=== PATIENT | female | born 1930 | race Caucasian/White ===

== ENCOUNTER 2017-01-18 22:27 | Observation (INO) | payer MEDICARE, OTHER ==
[2017-01-18] MEDS ORDERED: ASPIRIN 81 MG TABLET, CHEWABLE PO ONE (22:35)
[2017-01-18] MEDS ORDERED: LIDOCAINE 2% VISCOUS SOLN 20 ML UDCUP PO ONE (22:48)
[2017-01-18] MEDS ORDERED: METOCLOPRAMIDE HCL ORAL SOLN 10 MG/10 ML UDCUP PO ONE (22:48)
[2017-01-18] MEDS ORDERED: MAG HYDROX/AL HYDROX/SIMETH SUSP 30 ML UDCUP PO ONE (22:48)
[2017-01-18 22:58] LABS: ABSOLUTE BASOPHILS # (AUTO) 0.1 10^3/uL (0.0-0.2); ABSOLUTE EOSINOPHILS # (AUTO) 0.3 10^3/uL (0.0-0.6); ABSOLUTE LYMPHOCYTES (AUTO) 1.8 10^3/uL (0.5-4.7); ABSOLUTE MONOCYTES (AUTO) 0.6 10^3/uL (0.1-1.4); ABSOLUTE NEUT (AUTO) 4.5 10^3/uL (1.7-8.2); BASOPHILS % (AUTO) 0.9 % (0-2); EOSINOPHILS % (AUTO) 4.3 % (0-6); HEMATOCRIT 38.4 % (36.0-47.0); HGB HCT DIFFERENCE 0.6; LYMPHOCYTES % (AUTO) 24.6 % (13-45); MEAN CORPUSCULAR HEMOGLOBIN 31.8 pg (27.0-33.4); MEAN CORPUSCULAR HGB CONC 33.9 g/dL (32.0-36.0); MEAN CORPUSCULAR VOLUME 94 fl (80-97); MONOCYTES % (AUTO) 8.2 % (3-13); RED CELL DISTRIBUTION WIDTH 13.1 % (11.5-14.0); WHITE BLOOD COUNT 7.3 10^3/uL (4.0-10.5)
[2017-01-18 23:25] LABS: ALANINE AMINOTRANSFERASE 24 U/L (9-52); ALBUMIN 4.2 g/dL (3.5-5.0); ALKALINE PHOSPHATASE 63 U/L (38-126); ANION GAP 11 (5-19); ASPARTATE AMINO TRANSFERASE 21 U/L (14-36); BILIRUBIN,DIRECT 0.5 mg/dL (0.0-0.4); BILIRUBIN,TOTAL 0.7 mg/dL (0.2-1.3); BLOOD UREA NITROGEN 32 mg/dL (7-20); CALCIUM 9.8 mg/dL (8.4-10.2); CARBON DIOXIDE 30 mmol/L (22-30); CHLORIDE 103 mmol/L (98-107); CREATINE KINASE 49 U/L (30-135); CREATININE RESULT 1.07 mg/dL (0.52-1.25); GLUCOSE 147 mg/dL (75-110); POTASSIUM 3.7 mmol/L (3.6-5.0); SODIUM 144.3 mmol/L (137-145); TOTAL PROTEIN 7.2 g/dL (6.3-8.2)
[2017-01-18 23:34] LABS: CREATINE KINASE MB 0.95 ng/mL (<4.55)
[2017-01-18 23:35] LABS: TROPONIN I < 0.012 ng/mL
--- NOTE | 2017-01-18 23:40 | RADIOLOGY REPORT (SQ) ---
EXAM DESCRIPTION: CHEST SINGLE VIEW COMPLETED DATE/TIME: 01/18/2017 11:17 pm REASON FOR STUDY: CHEST PAIN COMPARISON: February 2015 EXAM PARAMETERS: NUMBER OF VIEWS: One view. TECHNIQUE: Single frontal radiographic view of the chest acquired. RADIATION DOSE: NA LIMITATIONS: None. FINDINGS: LUNGS AND PLEURA: No opacities, masses or pneumothorax. No pleural effusion. MEDIASTINUM AND HILAR STRUCTURES: No masses. Contour normal. HEART AND VASCULAR STRUCTURES: Cardiac silhouette remains enlarged and is unchanged in configuration. BONES: No acute findings. HARDWARE: Patient is status post median sternotomy. OTHER: No other significant finding. IMPRESSION: No significant interval change. Cardiomegaly. No acute consolidations are identified. Other findings as noted above TECHNICAL DOCUMENTATION: JOB ID: [id number]
[2017-01-18] MEDS ORDERED: FAMOTIDINE 20 MG TABLET PO ONE (23:42)
--- NOTE | 2017-01-18 23:48 | ER Document Report ---
ED General - General Chief Complaint: Chest Pain Stated Complaint: BURNING IN CHEST AND THROAT Time Seen by Provider: 01/18/17 22:45 Notes: Patient is an 86-year-old female with a past medical history of coronary artery disease status post four-vessel bypass in the remote past, hypertension and hyperlipidemia who presents with 2 hours of intermittent throat burning and pain. States that it is an intermittent discomfort but severe when present. Nothing triggers the pain and it does resolve spontaneously. She states it feels like a burning pain similar to when she has had reflux in the past but denies having this degree of intense pain in the past. Denies any distinct chest pain, shortness of breath, diaphoresis or pain rating to the arms, back or jaw. She has not seen a primary care doctor regarding today's concerns. She does have a history of esophageal reflux but takes ranitidine for this and usually does not have symptoms when taking this medication. TRAVEL OUTSIDE OF THE [place] IN LAST 30 DAYS: No - Related Data Allergies/Adverse Reactions: No Known Allergies Allergy (Verified 01/18/17 22:28) Past Medical History - General Information source: Patient - Social History Smoking Status: Never Smoker Frequency of alcohol use: None Drug Abuse: None Lives with: Family Family History: Reviewed & Not Pertinent Patient has suicidal ideation: No Patient has homicidal ideation: No - Past Medical History Cardiac Medical History: Reports: Hx Atrial Fibrillation, Hx Hypercholesterolemia, Hx Hypertension Endocrine Medical History: Reports: Hx Diabetes Mellitus Type 2 Renal/ Medical History: Denies: Hx Peritoneal Dialysis Musculoskeltal Medical History: Reports Hx Arthritis - hip Past Surgical History: Reports: Hx Cardiac Surgery - bypass in 1995 - Immunizations Hx Diphtheria, Pertussis, Tetanus Vaccination: Yes Hx Pneumococcal Vaccination: 04/28/07 Review of Systems - Review of Systems Notes: Constitutional: Negative for fever. HENT: Positive for throat pain Eyes: Negative for visual changes. Cardiovascular: Negative for chest pain. Respiratory: Negative for shortness of breath. Gastrointestinal: Negative for abdominal pain, vomiting or diarrhea. Genitourinary: Negative for dysuria. Musculoskeletal: Negative for back pain. Skin: Negative for rash. Neurological: Negative for headaches, weakness or numbness. 10 point ROS negative except as marked above and in HPI. Physical Exam - Vital signs Vitals: Temp Pulse Resp BP Pulse Ox 98.6 F 66 18 163/56 H 96 01/18/17 22:32 01/18/17 22:32 01/18/17 22:32 01/18/17 22:32 01/18/17 22:32 Interpretation: Hypertensive Notes: PHYSICAL EXAMINATION: GENERAL: Well-appearing, well-nourished and in no acute distress. HEAD: Atraumatic, normocephalic. EYES: Pupils equal round and reactive to light, extraocular movements intact, sclera anicteric, conjunctiva are normal. ENT: nares patent, oropharynx clear without exudates. Moist mucous membranes. NECK: Normal range of motion, supple without lymphadenopathy bilateral anterior cervical lymphadenopathy LUNGS: Breath sounds clear to auscultation bilaterally and equal. No wheezes rales or rhonchi. HEART: Irregularly irregular bradycardia, 3 out of 6 systolic ejection murmur ABDOMEN: Soft, nontender, normoactive bowel sounds. No guarding, no rebound. No masses appreciated. EXTREMITIES: Normal range of motion, no pitting or edema. No cyanosis. NEUROLOGICAL: No focal neurological deficits. Moves all extremities spontaneously and on command. PSYCH: Normal mood, normal affect. SKIN: Warm, Dry, normal turgor, no rashes or lesions noted. Course - Re-evaluation Re-evalutation: 01/18/17 23:46 Patient presents with throat pain that is intermittent in nature. Apparently she has had some upper respiratory symptoms over the last several weeks. She does have bilateral cervical lymphadenopathy on exam to suggest likely upper pharyngeal infection. There is no evidence of tonsillar hypertrophy, erythema or uvula deviation on exam. Normal phonation. Denies any difficulty swallowing. She is having no pain at the time of my assessment. Given her age and gender, she could have an atypical presentation of an acute coronary event. EKG does show left bundle branch block of which patient has a history. Initial troponin is normal that her symptoms started only 2 hours prior to arrival so she will require a delta troponin. I do not suspect an acute aortic dissection or pulmonary embolus as the etiology of her complaints today given vitals and history. If a second troponin remains normal and her symptoms are continuing to be improved will plan for discharge home with outpatient follow-up 01/19/17 03:21 Patient's troponin has mildly elevated at 0.044 at the indeterminate range. Dr. Dsouza has requested a repeat troponin now. I have discussed at length with the daughter and the patient at the bedside the options of considering transfer given her rising troponin versus monitoring here for serial troponins. The daughter and the patient themselves do not wish to be transferred at this time stating that they would consider transfer in the morning if the levels continue to trend upwards. They are clear that at this time they are uncertain whether or not something like a cardiac catheterization would be an option for them or not and do not feel that they can make this decision at 3:00 in the morning. 01/19/17 04:27 Repeat troponin is minimally elevated to 0.048. Patient has been admitted. - Vital Signs Vital signs: Temp Pulse Resp BP Pulse Ox 98.6 F 66 17 131/59 H 95 01/18/17 22:32 01/18/17 22:32 01/19/17 04:00 01/19/17 02:02 01/19/17 04:00 - Laboratory Result Diagrams: 01/18/17 22:49 01/18/17 22:49 Laboratory results interpreted by me: 01/18/17 22:49 BUN 32 H Est GFR ( Amer) 59 L Est GFR (Non-Af Amer) 49 L Glucose 147 H Direct Bilirubin 0.5 H - Diagnostic Test Radiology reviewed: Image reviewed, Reports reviewed Radiology results interpreted by me: 01/19/17 03:21 Chest x-ray: No acute infiltrate or pneumothorax - EKG Interpretation by Me Additional EKG results interpreted by me: 01/19/17 03:21 Atrial fibrillation, bradycardic at 59. Left bundle branch block is present unchanged from prior. No ST elevations or depressions. No [place] criteria. Discharge - Discharge Clinical Impression: Chest pain Qualifiers: Chest pain type: unspecified Qualified Code(s): R07.9 - Chest pain, unspecified Condition: Good Disposition: ADMITTED OBSERVATION [facility] Admitted: Telemetry
[2017-01-19] MEDS ORDERED: GLUCAGON,HUMAN RECOMB 1 MG INJ IM PRN ×2 (07:34→12:20)
[2017-01-19] MEDS ORDERED: DEXTROSE 50%-WATER 25 GM/50 ML DISP.SYRIN IV PRN ×4 (07:34→12:20)
[2017-01-19] MEDS ORDERED: DEXTROSE 40% GEL 15 GM TUBE PO PRN ×4 (07:34→12:20)
[2017-01-19] MEDS ORDERED: ACETAMINOPHEN 325 MG TABLET PO PRN (07:35)
--- NOTE | 2017-01-19 08:09 | PDOC H&P ---
History of Present Illness Admission Date/PCP: 01/19/17 04:48 Dr. Peoples Patient complains of: chest pain History of Present Illness: HAJA WARREN is a 86 year old female with atrial fibrillation, and known underlying coronary artery disease, having undergone a four-vessel bypass in the , with somewhat distant history of a subsequent negative stress study, but no subsequent heart catheterization, who presents to the emergency room for evaluation of above complaint. Patient has been discussed with emergency room nurse practitioner who evaluated the patient. Approximately 2 hours prior to arrival in the emergency room, patient experienced fairly pronounced burning discomfort in her lower throat and upper chest, substernal region. She was uncertain if this was chest pain per se, or more in her throat. Does have known reflux, and states that the location and quality of the pain was similar to prior episodes of reflux, but the intensity was much more pronounced, combined with the length of the episode. Resolved spontaneously. No associated diaphoresis, radiation of the pain, or shortness of breath. Took 2 aspirin on her own. Currently resting quietly, chest pain-free. No history of pulmonary embolus or DVT. No recent long trip with prolonged inactivity, or unusual lower extremity swelling or tenderness. Dictation via voice recognition software. Laboratory results are listed in [facility] and are reviewed. X-ray summary results are listed below, with full report(s) reviewed. . EKG reviewed and compared to prior tracing from March 16, 2015. Social history/personal habits: . Daughter lives with her. Retired. No use of alcohol tobacco or illicit drugs. No known drug allergies. Home medications initially autopopulated into [facility] may not accurately reflect patient's true medications, dosages, and/or frequencies. food safety technician to reconcile medications. Unfortunately, patient not certain of all medications/dosages/frequencies. REVIEW OF SYSTEMS: Constitutional: No fever or chills. Eyes: Wears glasses. ENT: No swallowing problems or complaints. Denies hearing loss. Pulmonary: No current complaints. Cardiovascular: See history and present illness. Gastrointestinal: See history and present illness. Skin: No current complaints, including rashes. Hematologic: Easy bruising. Neurologic: No current complaints, including numbness or tingling. Musculoskeletal: No current or chronic joint complaints, such as arthritis. Psychiatric: Denies anxiety or depression. Endocrine: No current complaints, including polyuria. Genitourinary: No current complaints, including dysuria. PHYSICAL EXAMINATION: 5 feet 6 inches tall. 75.3 kg. BMI 26.8 kg/m. 100% saturation on room air. Pulse 53 and slightly irregular. Respirations are 13 and unlabored. Blood pressure 168/69. Temperature 98.1. Slightly overweight otherwise well-nourished well-developed elderly female appearing approximately her stated age. Pleasant awake alert and cooperative. No obvious distress other than perhaps mildly anxious. Skin is warm and dry. No grossly obvious evidence of rash in areas of skin examined. No subcutaneous nodules palpated. ENT: Hearing grossly normal to normal conversation. Tongue midline on protrusion pink and slightly tacky. Eyes: No scleral icterus. Pupils equal and reactive to light at 4 mm. [place] conjunctivae. Neck is supple and nontender to gentle active range of motion and palpation. Midline trachea. No palpable thyroid nodule mass enlargement or tenderness. Lymphatic: No palpable cervical or clavicular nodes. Neck and lymphatic exams limited by patient body habitus. Psychiatric: Reasonable insight into acute and chronic medical issues. Oriented to time location and why here. Lungs: Auscultation reveals clear and equal breath sounds bilaterally. No use of accessory respiratory muscles. Cardiovascular: Heart regular rate and rhythm, without gallop murmur or rub. No carotid or abdominal aortic bruits. No ankle or pedal edema. Faintly palpable dorsalis pedis pulses. Abdomen:soft slightly distended nontender with positive bowel sounds. Unable to adequately evaluate abdomen for masses or organomegaly due to distention. Compression of neither her upper epigastrium nor sternum reproduces her previously noted chest discomfort. Extremities: Feet are warm and dry. No calf tenderness to compression. No grossly obvious visual evidence of calf swelling. Gentle manipulation of lower extremities fails to reveal any obvious evidence of injury or instability to knees hips or ankles. Neurologic: Moves upper extremities grossly normally. Patellar reflexes absent. Absent Babinski. Light touch is intact at feet. Dorsiflexion and plantarflexion of feet 5 / 5 and symmetric. Past Medical History Cardiac Medical History: Reports: Atrial Fibrillation, Coronary Artery Disease, Hyperlipidema, Hypertension Denies: Congestive Heart Failure, DVT, Pulmonary Embolism Pulmonary Medical History: Denies: Asthma, Chronic Obstructive Pulmonary Disease (COPD), Sleep Apnea EENT Medical History: Reports: Eyes - Wears glasses Denies: Ears, Throat Neurological Medical History: Denies: Hemorrhagic CVA, Ischemic CVA, Seizures Endocrine Medical History: Reports: Diabetes Mellitus Type 2 Denies: Diabetes Mellitus Type 1, Hyperthyroidism, Hypothyroidism Renal/ Medical History: Reports: None GI Medical History: Reports: Gastroesophageal Reflux Disease Denies: Cirrhosis, Hepatitis, Peptic Ulcer Disease Musculoskeltal Medical History: Denies: Arthritis Skin Medical History: Reports: None Psychiatric Medical History: Denies: Alcohol Dependency, Depression, General Anxiety Disorder, Substance Abuse, Tobacco Dependency Hematology: Reports: Other - Easy bruising Infectious Medical History: Denies: Hepatitis B, Hepatitis C Past Surgical History Past Surgical History: Reports: Coronary Artery Bypass Graft - Four-vessel bypass, 1990s, Orthopedic Surgery - Hip surgery, Other - Partial thyroidectomy for benign disease Social History Information Source: Patient, Emergency Med Personnel, [facility] Records Lives with: Family - Daughter Smoking Status: Never Smoker Frequency of Alcohol Use: None Drugs: None - Advance Directive Resuscitation Status: Full Code Surrogate healthcare decision maker:: Daughter Family History Family History: Reviewed & Not Pertinent Parental Family History Reviewed: Yes - Mother of [place]; father of tuberculosis Children Family History Reviewed: Yes - Healthy Sibling(s) Family History Reviewed.: Yes - Uncertain health problems with brother Medication/Allergy Home Medications: RX: Aspirin [Aspirin EC] 81 mg PO DAILY 01/19/17 RX: Carvedilol [Coreg 25 mg Tablet] 12.5 mg PO Q12 01/19/17 RX: Hydrochlorothiazide [Hydrodiuril 12.5 mg Capsule] 12.5 mg PO DAILY 01/19/17 RX: Nitroglycerin [Nitrostat] 0.4 mg PO Q5MP PRN 01/19/17 RX: Raloxifene HCl [Evista 60 mg Tablet] 60 mg PO DAILY 01/19/17 RX: Ranitidine HCl [Zantac 150 mg Tablet] 150 mg PO BID 01/19/17 RX: Rivaroxaban [Xarelto] 20 mg PO WSUPPER 01/19/17 RX: Telmisartan [Micardis 80 mg Tablet] 80 mg PO QHS 01/19/17 RX: Trazodone HCl [Desyrel 50 mg Tablet] 50 mg PO QHS 01/19/17 RX: Omeprazole 20 mg PO BID #60 capsule. 01/20/17 RX: Pravastatin Sodium [Pravachol] 80 mg PO WSUPPER #30 tablet 01/20/17 Allergies/Adverse Reactions: No Known Allergies Allergy (Verified 01/18/17 22:28) Physical Exam Vital Signs: Temp Pulse Resp BP Pulse Ox 97.6 F 48 L 20 180/82 H 96 01/19/17 07:35 01/19/17 07:35 01/19/17 07:35 01/19/17 07:35 01/19/17 07:35 Results Impressions: Chest X-Ray 01/18/17 22:35 IMPRESSION: No significant interval change. Cardiomegaly. No acute consolidations are identified. Other findings as noted above Assessment & Plan - Diagnosis (1) CKD (chronic kidney disease), stage III Is this a current diagnosis for this admission?: Yes (2) HLD (hyperlipidemia) Qualifiers: Hyperlipidemia type: unspecified Qualified Code(s): E78.5 - Hyperlipidemia , unspecified Is this a current diagnosis for this admission?: Yes Plan: Lipid panel pending. Resume home medications as appropriate once these have been determined and reviewed. (3) Diabetes mellitus type 2 in nonobese Is this a current diagnosis for this admission?: Yes Plan: Diabetic cardiac prerenal diet. Accu-Cheks with appropriate sliding scale coverage. Resume home medications as appropriate once these have been determined and reviewed. (4) GERD (gastroesophageal reflux disease) Qualifiers: Esophagitis presence: esophagitis presence not specified Qualified Code(s) : K21.9 - Gastro-esophageal reflux disease without esophagitis Is this a current diagnosis for this admission?: Yes Plan: Suspect this is the source of patient's chest discomfort, but will proceed with basic chest pain protocol. Twice daily Prevacid. (5) Elevated troponin Is this a current diagnosis for this admission?: Yes Plan: Low indeterminate range. Serial troponin. (6) CAD (coronary artery disease) Qualifiers: Coronary Disease-Associated Artery/Lesion type: unspecified vessel or lesion type [place] vs. transplanted heart: [place] heart Associated angina: angina presence unspecified Qualified Code(s): I25.10 - Atherosclerotic heart disease of [place] coronary artery without angina pectoris Is this a current diagnosis for this admission?: Yes (7) Chest pain Qualifiers: Chest pain type: unspecified Qualified Code(s): R07.9 - Chest pain, unspecified Is this a current diagnosis for this admission?: Yes Plan: Patient will be placed in observation bed under chest pain protocol. Patient understands to notify staff should chest pain recur. Serial troponin . Repeat EKG. lipid panel. I have strongly encouraged patient not to get out of bed without notifying staff , to avoid a fall with injury. Knee high SCDs for DVT prophylaxis, along with subcu heparin. Impression and plans were discussed with patient who concurs. Time spent in evaluation and management of patient: 68 minutes. - Time Time Spent: 50 to 70 Minutes Anticipated discharge: Home Within: within 24 hours
--- NOTE | 2017-01-19 08:19 | EKG REPORT ---
SEVERITY:- ABNORMAL ECG - ATRIAL FIBRILLATION, V-RATE 41-71 LVH WITH SECONDARY REPOLARIZATION ABNORMALITY ANTERIOR Q WAVES, POSSIBLY DUE TO LVH VS ANTERIOR MA : Confirmed by: Guanaco Enriquez MD 19-Jan-2017 08:19:19
[2017-01-19] MEDS ORDERED: HYDRALAZINE HCL INJ/PF 20 MG/1 ML SDV IV ONE (09:00)
[2017-01-19 10:07] LABS: CHOLESTEROL 192.11 mg/dL (0-200); Direct HDL 63 mg/dL (>40); TRIGLYCERIDES 62 mg/dL (<150)
[2017-01-19 10:18] LABS: DIRECT LDL 98 mg/dL (<100)
[2017-01-19] MEDS ORDERED: HYDRALAZINE HCL INJ/PF 20 MG/1 ML SDV IV PRN (10:53)
[2017-01-19] MEDS: ASPIRIN 81 MG TABLET, ENT COATED PO SCH (11:09)
[2017-01-19] MEDS: HEPARIN SOD (PORCINE) 5,000 UNIT/ML 1 ML SYRINGE SUBCUT SCH ×2 (11:09→21:43)
[2017-01-19] MEDS: DOCUSATE SODIUM 100 MG CAPSULE PO SCH ×2 (11:09→17:58)
--- NOTE | 2017-01-19 12:05 | PDOC CONSULTATION ---
Consultation Consult Date: 01/19/17 Attending physician:: SRIKANTH CHOWDARY Consult reason:: Chest pain, atrial fibrillation, bradycardia History of Present Illness Admission Date/PCP: 01/19/17 07:36 Patient complains of: Chest pain History of Present Illness: HAJA WARREN is a 86 year old female with atrial fibrillation, and known underlying coronary artery disease, having undergone a four-vessel bypass in the , with somewhat distant history of a subsequent negative stress study, but no subsequent heart catheterization, who presents to the emergency room for evaluation of above complaint. Approximately 2 hours prior to arrival in the emergency room, patient experienced fairly pronounced burning discomfort in her lower throat and upper chest, substernal region. She was uncertain if this was chest pain per se, or more in her throat. Patient has known reflux, and states that the location and quality of the pain was similar to prior episodes of reflux, but the intensity was much more pronounced, combined with the length of the episode. Resolved spontaneously after being given GI cocktail. No associated diaphoresis, radiation of the pain, or shortness of breath. Currently resting quietly, chest pain-free. Patient does have a history of carotid artery stenosis and is status post stent placement few years ago. This history was reviewed, supplemented and confirmed. Patient's daughter, son in the room they helped in history gathering Past Medical History Cardiac Medical History: Reports: Atrial Fibrillation, Coronary Artery Disease, Hyperlipidema, Hypertension, Peripheral Vascular Disease - History of carotid stenting Denies: Congestive Heart Failure, DVT, Pulmonary Embolism Pulmonary Medical History: Denies: Asthma, Chronic Obstructive Pulmonary Disease (COPD), Sleep Apnea EENT Medical History: Reports: Eyes - Wears glasses, Other - Easy bruising Denies: Ears, Throat Neurological Medical History: Denies: Hemorrhagic CVA, Ischemic CVA, Seizures Endocrine Medical History: Reports: Diabetes Mellitus Type 2 Denies: Diabetes Mellitus Type 1, Hyperthyroidism, Hypothyroidism Renal/ Medical History: Reports: None GI Medical History: Reports: Gastroesophageal Reflux Disease Denies: Cirrhosis, Hepatitis, Peptic Ulcer Disease Musculoskeltal Medical History: Denies: Arthritis Skin Medical History: Reports: None Psychiatric Medical History: Denies: Alcohol Dependency, Depression, General Anxiety Disorder, Substance Abuse, Tobacco Dependency Hematology: Reports: Other - Easy bruising Infectious Medical History: Denies: Hepatitis B, Hepatitis C Past Surgical History Past Surgical History: Reports: Coronary Artery Bypass Graft - Four-vessel bypass, , Orthopedic Surgery - Hip surgery, Other - Partial thyroidectomy for benign disease, history of carotid stent Social History Information Source: Patient Lives with: Family - Daughter Smoking Status: Never Smoker Frequency of Alcohol Use: None Drugs: None - Advance Directive Resuscitation Status: Full Code Surrogate healthcare decision maker:: Patient's daughter is the surrogate decision-maker Family History Family History: CAD, Hypertension Parental Family History Reviewed: Yes Children Family History Reviewed: Yes Sibling(s) Family History Reviewed.: Yes Medication/Allergy Home Medications: Aspirin [Aspirin EC] 81 mg PO DAILY 01/19/17 Carvedilol [Coreg 25 mg Tablet] 12.5 mg PO Q12 01/19/17 Hydrochlorothiazide [Hydrodiuril 12.5 mg Capsule] 12.5 mg PO DAILY 01/19/17 Nitroglycerin [Nitrostat] 0.4 mg PO Q5MP PRN 01/19/17 Omeprazole 20 mg PO QAM 01/19/17 Pravastatin Sodium [Pravachol] 40 mg PO WSUPPER 01/19/17 Raloxifene HCl [Evista 60 mg Tablet] 60 mg PO DAILY 01/19/17 Ranitidine HCl [Zantac 150 mg Tablet] 150 mg PO BID 01/19/17 Rivaroxaban [Xarelto] 20 mg PO WSUPPER 01/19/17 Telmisartan [Micardis 80 mg Tablet] 80 mg PO QHS 01/19/17 Trazodone HCl [Desyrel 50 mg Tablet] 50 mg PO QHS 01/19/17 Allergies/Adverse Reactions: No Known Allergies Allergy (Verified 01/18/17 22:28) Review of Systems Review of Systems: Please see history of present illness and past medical history as wall. Constitutional: No fever or chills reported. Head : No recent chronic headaches, recent head injury. Eyes: No recent eye pain, diplopia, redness, discharge, acute visual changes. Ears: No recent chronic ear pain, acute hearing loss, ear discharge. Oral cavity: No recent ulcerations, bleeding, oral cavity discomfort. Neck: No recent acute neck pain reported. Hematologic: No recent easy bruising or bleeding or hematologic malignancy reported. Lymphatic: No recent lymphatic malignancy, chronic lymphadenopathy reported yet Cardiovascular system review: See history of present illness. Respiratory system review: No recent chronic cough, hemoptysis, blood clots in the lungs reported. Mild Shortness of breath on exertion Gastrointestinal system review: Negative for any recent acute or chronic abdominal pain, hematemesis, melena, recent change in bowel habits. Patient has history of reflux Genitourinary system review: No recent acute or chronic hematuria, flank pain, UTI etc. reported. Skin system review: Negative for any recent abnormal bruising, no rash, no pruritus reported. Neurologic: No prior history of strokes, mini strokes, seizure disorder. Psychologic: No history of major psychosis or major depression reported. Musculoskeletal: Minor aches and pains reported. No acute joint swelling reported. Endocrine: No recent polyuria, polydipsia, recent heat or cold intolerance. Physical Exam Vital Signs: Temp Pulse Resp BP Pulse Ox 97.6 F 48 L 20 180/82 H 96 01/19/17 07:35 01/19/17 07:35 01/19/17 07:35 01/19/17 07:35 01/19/17 07:35 Results Laboratory Results: 01/19/17 09:31 Triglycerides 62 Cholesterol 192.11 LDL Cholesterol Direct 98 VLDL Cholesterol 12.0 HDL Cholesterol 63 01/19/17 09:31 Troponin I 0.028 EKG Comments: Atrial fibrillation with minor nonspecific ST-T changes, possible LVH Impressions: Chest X-Ray 01/18/17 22:35 IMPRESSION: No significant interval change. Cardiomegaly. No acute consolidations are identified. Other findings as noted above Assessment & Plan - Diagnosis (1) Chest pain Qualifiers: Chest pain type: unspecified Qualified Code(s): R07.9 - Chest pain, unspecified Is this a current diagnosis for this admission?: Yes (2) CAD (coronary artery disease) Qualifiers: Coronary Disease-Associated Artery/Lesion type: unspecified vessel or lesion type [place] vs. transplanted heart: [place] heart Associated angina: angina presence unspecified Qualified Code(s): I25.10 - Atherosclerotic heart disease of [place] coronary artery without angina pectoris Is this a current diagnosis for this admission?: Yes (3) CKD (chronic kidney disease), stage III Is this a current diagnosis for this admission?: Yes (4) Diabetes mellitus type 2 in nonobese Is this a current diagnosis for this admission?: Yes (5) HLD (hyperlipidemia) Qualifiers: Hyperlipidemia type: unspecified Qualified Code(s): E78.5 - Hyperlipidemia , unspecified Is this a current diagnosis for this admission?: Yes (6) Hypertension Qualifiers: Hypertension type: essential hypertension Qualified Code(s): I10 - Essential (primary) hypertension Is this a current diagnosis for this admission?: Yes (7) Carotid artery stenosis Qualifiers: Laterality: unspecified laterality Qualified Code(s): I65.29 - Occlusion and stenosis of unspecified carotid artery Is this a current diagnosis for this admission?: Yes (8) Afib Qualifiers: Atrial fibrillation type: chronic Qualified Code(s): I48.2 - Chronic atrial fibrillation Is this a current diagnosis for this admission?: Yes - Notes Notes: Chest pain: Patient has known CAD with prior bypass surgery many years ago. There is at least intermediate to high probability that the chest discomfort is from cardiac ischemia. At this point agree with the NH rule out protocol. For risk stratification, agreed that a 2D echo and nuclear stress test is indicated and these were scheduled. At this point will recommend optimization of medical therapy for underlying CAD. Coronary artery disease: Patient gives history of quadruple bypass surgery in . Recommend optimization of medical management. Chronic kidney disease: Currently stable. Diabetes: Currently stable recommend good control but avoid any hypo-or hyperglycemia. Dyslipidemia: Recommend high potency statin therapy. Hypertension: Blood pressure goal should be 150/90 or less in this elderly lady. However stricter goals can also be recommended. Carotid artery stenosis: Patient gives history of stent placement. Continue statin and antiplatelet therapy. Currently stable without any TIA or stroke type symptoms. A. FIB: chronic, continue coumadine. - Time Time Spent: 30 to 50 Minutes - CODE STATUS was discussed, patient remains full code. Surrogate decision-maker patient's daughter. Multiple medical problems were addressed. More than 50% of the time spent coordinating care, discussing management plans with involved caregivers. Management plans discussed with involved personnels. Medical decision making was of moderate to high complexity , patient's has multiple comorbidities. Medications reviewed and adjusted accordingly: Yes
[2017-01-19] MEDS ORDERED: INSULIN LISPRO 100 UNIT/ML 3 ML VIAL SUBCUT PRN (12:20)
[2017-01-19] MEDS ORDERED: ATORVASTATIN CALCIUM 80 MG TABLET PO SCH (12:30)
[2017-01-19] MEDS ORDERED: ATORVASTATIN CALCIUM 80 MG TABLET PO ONE (14:00)
--- NOTE | 2017-01-19 14:07 | PDOC PROGRESS REPORT ---
Subjective Progress Note for:: 01/19/17 Subjective:: Pt is seen resting in bed comfortably with her [id number] present. She denies chest pain at present. She reports that she had a sudden onset of neck pain described as a burning sensation that radiated to the substernal region. [id number] states that pt was "off balance" at onset of pain. She reports that the pain was similar to episodes of reflux she has had in the past, but much more severe and accompanied by a general sense of "unease." She has not had any further episodes of pain. She denies fever, chills, parker, dizziness, confusion, palpitations, abd pain, nausea/vomiting. Review of systems is otherwise negative. Physical Exam Vital Signs: Temp Pulse Resp BP Pulse Ox 97.6 F 48 L 20 180/82 H 96 01/19/17 07:35 01/19/17 07:35 01/19/17 07:35 01/19/17 07:35 01/19/17 07:35 General appearance: PRESENT: no acute distress, well-developed, well-nourished Head exam: PRESENT: atraumatic, normocephalic Eye exam: PRESENT: conjunctiva pink, EOMI, PERRLA. ABSENT: scleral icterus Ear exam: PRESENT: normal external ear exam Mouth exam: PRESENT: moist, tongue midline Neck exam: PRESENT: full ROM. ABSENT: carotid bruit, JVD, lymphadenopathy, thyromegaly Respiratory exam: PRESENT: clear to auscultation shae. ABSENT: rales, rhonchi, wheezes Cardiovascular exam: PRESENT: bradycardia, +S1, +S2. ABSENT: diastolic murmur, rubs, systolic murmur Pulses: PRESENT: normal dorsalis pedis pul Vascular exam: PRESENT: normal capillary refill GI/Abdominal exam: PRESENT: normal bowel sounds, soft. ABSENT: distended, guarding, mass, organolmegaly, rebound, tenderness Rectal exam: PRESENT: deferred Extremities exam: PRESENT: full ROM. ABSENT: calf tenderness, clubbing, pedal edema Neurological exam: PRESENT: alert, awake, oriented to person, oriented to place , oriented to time, oriented to situation, CN II-XII grossly intact. ABSENT: motor sensory deficit Psychiatric exam: PRESENT: appropriate affect, normal mood. ABSENT: homicidal ideation, suicidal ideation Skin exam: PRESENT: dry, intact, warm. ABSENT: cyanosis, rash Results Laboratory Results: 01/19/17 09:31 Triglycerides 62 Cholesterol 192.11 LDL Cholesterol Direct 98 VLDL Cholesterol 12.0 HDL Cholesterol 63 01/19/17 09:31 Troponin I 0.028 Impressions: Chest X-Ray 01/18/17 22:35 IMPRESSION: No significant interval change. Cardiomegaly. No acute consolidations are identified. Other findings as noted above Assessment & Plan - Diagnosis (1) Chest pain Qualifiers: Chest pain type: unspecified Qualified Code(s): R07.9 - Chest pain, unspecified Is this a current diagnosis for this admission?: Yes Plan: Patient with known CAD and hx of CABG several years ago in setting of afib, hypertension, HLD and DM2. Will complete CA rule out protocol. Troponin trended down (<0.012-->0.044-->0.048-->0.028) 1- Appreciate cardiology consultation 2- Will obtain echocardiogram and nuclear stress test (2) Hypertension Qualifiers: Hypertension type: essential hypertension Qualified Code(s): I10 - Essential (primary) hypertension Is this a current diagnosis for this admission?: Yes Plan: Goal for BP less than 150/90 1- Resume home medications with holding parameters: hydrochlorothiazide, carvedilol, telmisartan 2- PRN hydralazine (3) HLD (hyperlipidemia) Qualifiers: Hyperlipidemia type: unspecified Qualified Code(s): E78.5 - Hyperlipidemia , unspecified Is this a current diagnosis for this admission?: Yes Plan: High dose statin (4) Diabetes mellitus type 2 in nonobese Is this a current diagnosis for this admission?: Yes Plan: No home medications; diet controlled. 1- Monitor bgl with SSI (5) GERD (gastroesophageal reflux disease) Qualifiers: Esophagitis presence: esophagitis presence not specified Qualified Code(s) : K21.9 - Gastro-esophageal reflux disease without esophagitis Is this a current diagnosis for this admission?: Yes Plan: 1- Prevacid BID 2- Consider GI cocktail for severe sx (6) Afib Qualifiers: Atrial fibrillation type: chronic Qualified Code(s): I48.2 - Chronic atrial fibrillation Is this a current diagnosis for this admission?: Yes Plan: 1- Plan as above 2- Continue home medication: Xarelto (7) CAD (coronary artery disease) Qualifiers: Coronary Disease-Associated Artery/Lesion type: unspecified vessel or lesion type [place] vs. transplanted heart: [place] heart Associated angina: angina presence unspecified Qualified Code(s): I25.10 - Atherosclerotic heart disease of [place] coronary artery without angina pectoris Is this a current diagnosis for this admission?: Yes (8) CKD (chronic kidney disease), stage III Is this a current diagnosis for this admission?: Yes Plan: Avoid nephrotoxic medications; will monitor. - Time Time Spent with patient: 35 or more minutes Medications reviewed and adjusted accordingly: Yes Anticipated discharge: Home
--- NOTE | 2017-01-19 16:21 | EKG REPORT ---
SEVERITY:- ABNORMAL ECG - ATRIAL FIBRILLATION INCOMPLETE LEFT BUNDLE BRANCH BLOCK LVH WITH SECONDARY REPOLARIZATION ABNORMALITY ANTERIOR Q WAVES, POSSIBLY DUE TO LVH VS OLD ANTERIOR CO : Confirmed by: Guanaco Enriquez MD 19-Jan-2017 16:20:30
[2017-01-19] MEDS ORDERED: RIVAROXABAN 10 MG TABLET PO SCH (17:00)
[2017-01-19] MEDS: HYDRALAZINE HCL INJ/PF 20 MG/1 ML SDV IV PRN ×2 (17:58→21:43)
[2017-01-19] MEDS: LANSOPRAZOLE 30 MG TAB.RAP.DR PO SCH (17:58)
[2017-01-19] MEDS: PROMETHAZINE HCL 25 MG TABLET PO PRN (18:45)
[2017-01-19] MEDS ORDERED: POTASSIUM CHLORIDE 10 MEQ TABLET.SA PO ONE (20:00)
[2017-01-19] MEDS: CARVEDILOL 12.5 MG TABLET PO SCH (21:42)
[2017-01-19] MEDS ORDERED: (PENDING PHARMACY ID) (Carvedilol [Coreg 25 Mg Tablet] 12.5 MG) PO SCH (22:00)
[2017-01-19] MEDS ORDERED: TRAZODONE HCL 50 MG TABLET PO SCH (22:00)
[2017-01-19] MEDS ORDERED: LOSARTAN POTASSIUM 50 MG TABLET PO SCH (22:00)
[2017-01-19] MEDS ORDERED: (PENDING PHARMACY ID) (Telmisartan [Micardis 80 Mg Tablet] 80 MG) PO SCH (22:00)
[2017-01-19] MEDS ORDERED: LOSARTAN POTASSIUM 25 MG TABLET PO SCH (22:00)
[2017-01-20 06:04] LABS: ANION GAP 11 (5-19); BLOOD UREA NITROGEN 26 mg/dL (7-20); CALCIUM 9.1 mg/dL (8.4-10.2); CARBON DIOXIDE 28 mmol/L (22-30); CHLORIDE 101 mmol/L (98-107); CREATININE RESULT 0.91 mg/dL (0.52-1.25); GLUCOSE 130 mg/dL (75-110); POTASSIUM 3.8 mmol/L (3.6-5.0); SODIUM 139.6 mmol/L (137-145)
[2017-01-20] MEDS: LANSOPRAZOLE 30 MG TAB.RAP.DR PO SCH (06:58)
[2017-01-20] MEDS: PROMETHAZINE HCL 25 MG TABLET PO PRN (08:43)
[2017-01-20] MEDS ORDERED: RALOXIFENE HCL 60 MG TABLET PO SCH (10:00)
[2017-01-20] MEDS ORDERED: ATORVASTATIN CALCIUM 80 MG TABLET PO SCH (10:00)
[2017-01-20] MEDS ORDERED: LISINOPRIL 5 MG TABLET PO SCH (10:00)
[2017-01-20] MEDS ORDERED: POTASSIUM CHLORIDE 10 MEQ TABLET.SA PO SCH (10:00)
[2017-01-20] MEDS ORDERED: HYDROCHLOROTHIAZIDE 12.5 MG CAPSULE PO SCH (10:00)
[2017-01-20] MEDS: HEPARIN SOD (PORCINE) 5,000 UNIT/ML 1 ML SYRINGE SUBCUT SCH (11:26)
[2017-01-20] MEDS: CARVEDILOL 12.5 MG TABLET PO SCH (11:31)
[2017-01-20] MEDS: ASPIRIN 81 MG TABLET, ENT COATED PO SCH (11:31)
[2017-01-20] MEDS: DOCUSATE SODIUM 100 MG CAPSULE PO SCH (12:13)
[2017-01-20] MEDS ORDERED: REGADENOSON INJ 0.4 MG/5 ML DISP.SYRIN IV ONE (13:18)
[2017-01-20] MEDS ORDERED: AMINOPHYLLINE INJ/PF 250 MG/10 ML SDV IV ONE (13:18)
--- NOTE | 2017-01-20 13:19 | DRAGON STRESS TEST REPORT ---
INTRAVENOUS LEXISCAN CARDIOLITE STRESS TEST USING SINGLE PHOTON EMMISION COMPUTERIZED TOMOGRAPHIC. DATE OF PROCEDURE: January 20, 2017 INDICATION : Chest pain CARDIAC RISK FACTORS: Known CAD with status post CABG RESTING EKG: Atrial fibrillation with diffuse T-wave inversions, nonprogression of R-wave V1 to V3, left axis deviation STRESS EKG: No significant changes noted with LexiScan bolus REASON FOR TERMINATION: Protocol. PROCEDURE REPORT: Baseline heart rate 59 beats per minute with blood pressure of 143/67. Patient had no significant complaints. Heart rate at 2 minutes post bolus 73 with a blood pressure of 114/46. 3 minutes post bolus heart rate 65 with blood pressure of 123/52. No significant EKG changes were noted. Patient had no significant complaints during the procedure or postprocedure. Patient injected with Aminophyllin 75 mg at 3 minutes or later after Lexiscan bolus. CONCLUSIONS: Normal EKG and hemodynamic response to IV LexiScan. NUCLEAR DATA: At rest the patient was given 11.46 millicuries of technetium 99 sestamibi injected intravenously. As per protocol rest gated SPECT images were obtained. Subsequently the patient was given intravenous LexiScan at a dose of 0.4 mg in 5 mL intravenously, followed by flush with normal saline. Subsequently the stress dose of 34.8 millicuries of technetium 99 sestamibi was injected intravenously. As per protocol stress gated images were obtained. NUCLEAR INTERPRETATION: Both raw and processed data were used for interpretation. Visual, qualitative, computer-generated quantitative data was used. There was good myocardial uptake of technetium compound. Motion artifact and soft tissue attenuations were noted. Increased visceral uptake was noted. No definitive areas of transient perfusion defect noted except for mild decreased uptake noted in the mid anterior wall, most likely related to differences in breast attenuation artifact but cannot rule out an area of mild ischemia. No definitive areas of fixed perfusion defect or scars noted. EKG gated imaging showed LV EF at 56 %, rest and stress gated EF similar visually. T. I D. ratio was 1.27. Lung heart ratio noted to be within normal limits 0.30. No significant extracardiac and abnormal radiotracer activities were noted. RV free wall uptake was noted to be WNL. IMPRESSION: Also refer to comments under nuclear interpretation. Also test results needs to be interpreted in the context of pretest probability. 1. No definitive areas of transient perfusion defect noted except for mild decreased uptake noted in the mid anterior wall, most likely related to differences in breast attenuation artifact but cannot rule out an area of mild ischemia 2. There is no definitive scintigraphic evidence of myocardial infarction/scar. 3. EKG gated imaging shows left ventricular ejection fraction of approximately 56 %. 4. Clinical correlation requested as occasionally single vessel disease or balanced ischemia could be missed. In approximately 10% of the cases Lexiscan may not cause adequate vasodilatory stress. RECOMMENDATIONS: Aggressive risk factor modification, medical therapy. Clinical correlation with echocardiogram derived ejection fraction. Inability to exercise by itself can lead to increased cardiovascular event risks. Consider cardiology consultation and or follow-up if clinically indicated. I AM AVAILABLE FOR CARDIOLOGY CONSULTATION AND FOLLOWUP IF REQUESTED BY PMD Frank Arteaga M.D., [employer] Operator plastic surgery technician, Board certified in cardiovascular diseases, Nuclear cardiology, Echocardiography Cardiac CT and cardiac MRI Ph. [phone] [facility] CENTERJorgito
[2017-01-20 13:31] VITALS: BP 155/61
--- NOTE | 2017-01-20 16:32 | PDOC DISCHARGE SUMMARY ---
General - Admit/Disc Date/PCP Admission Date/Primary Care Provider: 01/19/17 07:36 Discharge Date: 01/20/17 - Discharge Diagnosis (1) Chest pain Is this a current diagnosis for this admission?: Yes Summary: Patient was sent onset severe neck "burning sensation" that radiated substernally. Chest pain likely related to her GERD/reflux, however based upon age, female gender, history of diabetes, and previous CABG in the was admitted for chest pain protocol. Initial troponin indeterminately elevated and trended down. Cardiology consulted. Nuclear stress test reassuring; no definitive evidence of myocardial infarction/scar. At time of dictation, echocardiogram is pending. (2) Hypertension Is this a current diagnosis for this admission?: Yes Summary: Home medications resumed with holding parameters for hydrochlorothiazide, carvedilol, telmisartan. PRN hydralazine required x1. Pt remains mildly hypertensive and will require continued gradual medication adjustments as outpatient. (3) HLD (hyperlipidemia) Is this a current diagnosis for this admission?: Yes Summary: Statin therapy escalated for cardiovascular event protection. (4) Diabetes mellitus type 2 in nonobese Is this a current diagnosis for this admission?: Yes Summary: Diet controlled. On statin and ASA. (5) GERD (gastroesophageal reflux disease) Is this a current diagnosis for this admission?: Yes Summary: Symptoms well controlled while inpatient; will d/c on Omeprazole BID. (6) Afib Is this a current diagnosis for this admission?: Yes Summary: Continue Xarelto. (7) CAD (coronary artery disease) Is this a current diagnosis for this admission?: Yes (8) CKD (chronic kidney disease), stage III Is this a current diagnosis for this admission?: Yes Summary: Avoid nephrotoxic medications. - Additional Information Resuscitation Status: Full Code Discharge Diet: Cardiac, Diabetic Discharge Activity: Activity As Tolerated, Balance Activity w/Rest Home Medications: Aspirin [Aspirin EC] 81 mg PO DAILY 01/19/17 Carvedilol [Coreg 25 mg Tablet] 12.5 mg PO Q12 01/19/17 Hydrochlorothiazide [Hydrodiuril 12.5 mg Capsule] 12.5 mg PO DAILY 01/19/17 Nitroglycerin [Nitrostat] 0.4 mg PO Q5MP PRN 01/19/17 Raloxifene HCl [Evista 60 mg Tablet] 60 mg PO DAILY 01/19/17 Ranitidine HCl [Zantac 150 mg Tablet] 150 mg PO BID 01/19/17 Rivaroxaban [Xarelto] 20 mg PO WSUPPER 01/19/17 Telmisartan [Micardis 80 mg Tablet] 80 mg PO QHS 01/19/17 Trazodone HCl [Desyrel 50 mg Tablet] 50 mg PO QHS 01/19/17 Omeprazole 20 mg PO BID #60 capsule. 01/20/17 Pravastatin Sodium [Pravachol] 80 mg PO WSUPPER #30 tablet 01/20/17 History of Present Illness Patient complains of: Pt has no complaints today. She denies additional episodes of chest pain. She denies parker, dizziness, chest pain, dyspnea, orthopnea. She is hopeful for a d/c to home after completion of stress test and echocardiogram. History of Present Illness: Per H&P by Dr. Dsouza: HAJA WARREN is a 86 year old female with atrial fibrillation, and known underlying coronary artery disease, having undergone a four-vessel bypass in the , with somewhat distant history of a subsequent negative stress study, but no subsequent heart catheterization, who presents to the emergency room for evaluation of above complaint. Approximately 2 hours prior to arrival in the emergency room, patient experienced fairly pronounced burning discomfort in her lower throat and upper chest, substernal region. She was uncertain if this was chest pain per se, or more in her throat. Does have known reflux, and states that the location and quality of the pain was similar to prior episodes of reflux, but the intensity was much more pronounced, combined with the length of episode. Resolved spontaneously. No associated diaphoresis, radiation of the pain, or shortness of breath. Took 2 aspirin on her own. Currently resting quietly, chest pain-free. Hospital Course Hospital Course: Severe burning sensation of the throat radiating to substernal region resolved spontaneously prior to arrival in the ER. She was admitted for observation with chest pain protocol. Troponins trended negative. Cardiac stress test reassuring. At time of dictation, echocardiogram is pending. Patient with A. fib, bradycardia, hypertension. Her medications were adjusted with holding parameters for bradycardia. She was continued on her Xarelto. Today she remains slightly hypertensive, however, stable and acceptable for discharge. She denies additional occurrences of pain, and reports that she is hopeful to be discharged to home today. Physical Exam Vital Signs: Temp Pulse Resp BP Pulse Ox 98.3 F 60 19 155/61 H 97 01/20/17 12:13 01/20/17 12:13 01/20/17 12:13 01/20/17 12:13 01/20/17 12:13 Intake & Output 01/19/17 01/20/17 01/21/17 06:59 06:59 06:59 Intake Total 1100 200 Output Total 300 Balance 800 200 Weight 79.1 kg General appearance: PRESENT: no acute distress, well-developed, well-nourished Head exam: PRESENT: atraumatic, normocephalic Eye exam: PRESENT: conjunctiva pink, EOMI, PERRLA. ABSENT: scleral icterus Ear exam: PRESENT: normal external ear exam Mouth exam: PRESENT: moist, tongue midline Neck exam: ABSENT: carotid bruit, JVD, lymphadenopathy, thyromegaly Respiratory exam: PRESENT: clear to auscultation shae. ABSENT: rales, rhonchi, wheezes Cardiovascular exam: PRESENT: irregular rhythm, +S1, +S2. ABSENT: diastolic murmur, rubs, systolic murmur Pulses: PRESENT: normal dorsalis pedis pul Vascular exam: PRESENT: normal capillary refill GI/Abdominal exam: PRESENT: normal bowel sounds, soft. ABSENT: distended, guarding, mass, organolmegaly, rebound, tenderness Rectal exam: PRESENT: deferred Extremities exam: PRESENT: full ROM. ABSENT: calf tenderness, clubbing, pedal edema Neurological exam: PRESENT: alert, awake, oriented to person, oriented to place , oriented to time, oriented to situation, CN II-XII grossly intact. ABSENT: motor sensory deficit Psychiatric exam: PRESENT: appropriate affect, normal mood. ABSENT: homicidal ideation, suicidal ideation Skin exam: PRESENT: dry, intact, warm. ABSENT: cyanosis, rash Results Laboratory Results: 01/20/17 05:00 01/19/17 01/20/17 15:05 05:00 Sodium 139.6 Potassium 3.8 Chloride 101 Carbon Dioxide 28 Anion Gap 11 BUN 26 H Creatinine 0.91 Est GFR ( Amer) > 60 Est GFR (Non-Af Amer) 59 L Glucose 130 H Calcium 9.1 Magnesium 1.9 01/19/17 01/19/17 09:31 15:05 Troponin I 0.028 0.018 Impressions: Chest X-Ray 01/18/17 22:35 IMPRESSION: No significant interval change. Cardiomegaly. No acute consolidations are identified. Other findings as noted above Plan Discharge Plan: Follow-up with PCP within 7 days. Follow-up with [facility] in 4 weeks. Return to ED immediately for severe chest pain or chest pain unresolved after 2 Nitro tabs. Time Spent: Greater than 30 Minutes
--- NOTE | 2017-01-20 19:26 | XCELERA REPORT ---
[address] [address] Transthoracic Echocardiogram Report Name: HAJA WARREN Age: 86 yrs Gender: Female : 1930 Patient Status: Inpatient Patient Location: [address] [place] [address] Study Date: 01/20/2017 03:01 PM Height: 66 in Weight: 166 lb BSA: 1.8 m2 Procedure: A complete two-dimensional transthoracic echocardiogram was performed (2D, M-mode, spectral and color flow Doppler). The study was technically adequate with some images being suboptimal in quality. Reason For Study: chest pain Ordering Physician: STEFANO MERCADO Performed By: Dwaine Delarosa Interpretation Summary The left ventricular ejection fraction is normal. There is mild concentric left ventricular hypertrophy. The left ventricle is grossly normal size. Wall motion cannot be accurately commented on, but no definite regional wall motion abnormalities noted. LV diastolic function could not be adequately assessed due to atrial fibrilation. The right ventricle is mildly dilated. The right atrium is mildly dilated. The left atrium is moderately dilated. There is a mild amount of mitral regurgitation There is no mitral valve stenosis. There is a mild amount of aortic regurgitation There is no aortic valve stenosis There is a moderate amount of tricuspid regurgitation Right ventricular systolic pressure is estimated to be elevated at 50- 60mmHg. There is moderate pulmonary hypertension by echo The aortic root is not well visualized but is probably normal size. The inferior vena cava appeared normal and decreased > 50% with respiration (RAP 5-10 mmHg) There is no pericardial effusion. MMode/2D Measurements & Calculations RVDd: 3.6 cm LVIDd: 4.4 cm FS: 36.9 % Ao root diam: 3.0 cm IVSd: 1.4 cm LVIDs: 2.8 cm EDV(Teich): 85.9 ml LVPWd: 1.4 cm ESV(Teich): 28.4 ml Ao root area: 7.2 cm2 EF(Teich): 67.0 % Doppler Measurements & Calculations MV E max shree: MV dec slope: Ao V2 max: AI max shree: 100.3 cm/sec 185.7 cm/sec 330.0 cm/sec MV A max shree: 522.5 cm/sec2 Ao max PG: AI max P.41 cm/sec MV dec time: 13.8 mmHg 43.6 mmHg MV E/A: 244.4 0.19 sec AI dec slope: 159.2 cm/sec2 AI P1/2t: 607.2 msec LV V1 max PG: PA V2 max: PI end-d shree: TR max shree: 5.8 mmHg 87.0 cm/sec 119.1 cm/sec 325.9 cm/sec LV V1 max: PA max P.0 mmHg TR max P.4 cm/sec 43.4 mmHg RVSP(TR): 48.4 mmHg RAP systole: 5.0 mmHg Left Ventricle The left ventricle is grossly normal size. There is mild concentric left ventricular hypertrophy. The left ventricular ejection fraction is normal. LV diastolic function could not be adequately assessed due to atrial fibrilation. Wall motion cannot be accurately commented on, but no definite regional wall motion abnormalities noted. Right Ventricle The right ventricle is mildly dilated. There is normal right ventricular wall thickness. The right ventricular systolic function is normal. Atria The right atrium is mildly dilated. The left atrium is moderately dilated. Interarterial septum not well visualized and not well dopplered. Cannot comment on ASD/PFO presence. Mitral Valve The mitral valve leaflets are sclerotic, but show no functional abnormalities. There is no mitral valve stenosis. There is a mild amount of mitral regurgitation. Aortic Valve The aortic valve is sclerotic, but shows no functional abnormality. There is no aortic valve stenosis. There is a mild amount of aortic regurgitation. Tricuspid Valve The tricuspid valve is not well visualized, but is grossly normal. There is no tricuspid stenosis. There is a moderate amount of tricuspid regurgitation. Right ventricular systolic pressure is estimated to be elevated at 50-60mmHg. There is moderate pulmonary hypertension by echo. Pulmonic Valve The pulmonic valve is not well visualized. Great Vessels The aortic root is not well visualized but is probably normal size. The inferior vena cava appeared normal and decreased > 50% with respiration (RAP 5-10 mmHg). Effusions There is no pericardial effusion. : STEFANO MERCADO > Frank Arteaga
--- NOTE | 2017-01-20 20:05 | PDOC PROGRESS REPORT ---
Subjective Progress Note for:: 01/20/17 Subjective:: Patient seems to be doing better with gradual improvement. Pt is denying any chest arm or neck discomfort. Patient denying any PND, orthopnea. Patient denied any sustained palpitations, dizziness, syncope, near syncope. Patient denying any fever chills. Patient denying any other significant discomfort. Patient is maintaining atrial fibrillation, heart rate is well controlled. Patient did undergo nuclear stress test this morning without any complications.. Review of systems: Rest review of systems negative. Medications: Medications have been reviewed. Physical Exam Vital Signs: Temp Pulse Resp BP Pulse Ox 98.3 F 52 L 19 155/61 H 97 01/20/17 17:10 01/20/17 17:10 01/20/17 17:10 01/20/17 12:13 01/20/17 17:10 Intake & Output 01/19/17 01/20/17 01/21/17 06:59 06:59 06:59 Intake Total 1100 200 Output Total 300 Balance 800 200 Weight 79.1 kg Exam: GENERAL: well-nourished and in no acute distress. Alert and oriented x3 HEAD: Atraumatic, normocephalic. EYES: Pupils equal round and reactive to light, extraocular movements intact, sclera anicteric, conjunctiva are normal. ENT: TMs normal, nares patent, oropharynx clear without exudates. Moist mucous membranes. No oral ulcerations or bleeding gums noted NECK: supple without lymphadenopathy. Trachea is central. No cervical or axillary lymphadenopathy noted. Carotids are 2+, JVD WNL LUNGS: Respiration seems nonlabored, no significant accessory muscle action noted. Breath sounds clear to auscultation bilaterally and equal noted. No wheezes rales or rhonchi noted. No significant dullness noted on percussion. CHEST: Palpation of the chest wall shows no significant chest wall tenderness. No other significant abnormalities noted. HEART: [place] [employer], No PSH, 1/6 ARJUN aortic area, 1/6 winters systolic murmur mitral area, no rubs, no gallops. ABDOMEN: Soft, no significant tenderness appreciated, normoactive bowel sounds. No guarding, no rebound. No rigidity noted . No masses appreciated. EXTREMITIES: Pedal pulses are 1-2+, no calf tenderness noted. No clubbing or cyanosis.trace to 1+ pedal edema noted NEUROLOGICAL: Focused neurological exam showed no significant neurologic deficit. Normal speech, no focal weakness appreciated. PSYCH: Normal mood, normal affect. Judgment and insight within normal limits. SKIN: No significant ecchymosis, rash, ulcerations or signs of pruritus noted. MUSCULOSKELETAL EXAM: No significant joint swelling noted. Results Laboratory Results: 01/20/17 05:00 01/20/17 05:00 Sodium 139.6 Potassium 3.8 Chloride 101 Carbon Dioxide 28 Anion Gap 11 BUN 26 H Creatinine 0.91 Est GFR ( Amer) > 60 Est GFR (Non-Af Amer) 59 L Glucose 130 H Calcium 9.1 01/19/17 01/19/17 09:31 15:05 Troponin I 0.028 0.018 EKG Comments: Atrial fibrillation with controlled ventricular response noted. Impressions: Chest X-Ray 01/18/17 22:35 IMPRESSION: No significant interval change. Cardiomegaly. No acute consolidations are identified. Other findings as noted above Assessment & Plan - Diagnosis (1) Chest pain Qualifiers: Chest pain type: unspecified Qualified Code(s): R07.9 - Chest pain, unspecified Is this a current diagnosis for this admission?: Yes (2) CAD (coronary artery disease) Qualifiers: Coronary Disease-Associated Artery/Lesion type: unspecified vessel or lesion type [place] vs. transplanted heart: [place] heart Associated angina: angina presence unspecified Qualified Code(s): I25.10 - Atherosclerotic heart disease of [place] coronary artery without angina pectoris Is this a current diagnosis for this admission?: Yes (3) CKD (chronic kidney disease), stage III Is this a current diagnosis for this admission?: Yes (4) Diabetes mellitus type 2 in nonobese Is this a current diagnosis for this admission?: Yes (5) HLD (hyperlipidemia) Qualifiers: Hyperlipidemia type: unspecified Qualified Code(s): E78.5 - Hyperlipidemia , unspecified Is this a current diagnosis for this admission?: Yes (6) Hypertension Qualifiers: Hypertension type: essential hypertension Qualified Code(s): I10 - Essential (primary) hypertension Is this a current diagnosis for this admission?: Yes (7) Carotid artery stenosis Qualifiers: Laterality: unspecified laterality Qualified Code(s): I65.29 - Occlusion and stenosis of unspecified carotid artery Is this a current diagnosis for this admission?: Yes (8) Afib Qualifiers: Atrial fibrillation type: chronic Qualified Code(s): I48.2 - Chronic atrial fibrillation Is this a current diagnosis for this admission?: Yes - Notes Notes: Chest pain: Nuclear stress test relatively low risk.. Small area of mild ischemia versus differences in breast attenuation artifact was noted. In view of patient's advanced age, patient was advised medical management with which they agree. 2D echo shows normal LVEF. Overall risk is noted to be on the low side. This was discussed in detail with the patient, her son who were in the room. Their questions were answered. Coronary artery disease: Symptomatically stable. Chronic kidney disease: Stable Diabetes: Blood sugar under satisfactory control. Hyperlipidemia: Continue statin therapy. Carotid artery stenosis: Stable Atrial fibrillation: Continue rate control and chronic anticoagulation. - Time Time with patient: Greater than 35 minutes - Patient was seen multiple times. In the morning nuclear stress test risk benefits were discussed. Patient questions were answered. Patient stress test was supervised. Later on nuclear stress test results were discussed. Overall at least 40 minutes spent. CODE STATUS was discussed, patient remains full code. Surrogate decision-maker unchanged. Multiple medical problems were addressed. More than 50% of the time spent coordinating care, discussing management plans with involved caregivers. Management plans discussed with involved personnels. Medical decision making was of moderate to high complexity, patient's has multiple comorbidities. Medications reviewed and adjusted accordingly: Yes
== END 2017-01-20 17:34 | disposition home or self-care (01) ==
LOC: ER 22:27 → EH 01-19 04:48 → UNDOADMOB 01-19 04:48 → EH 01-19 07:29 → 3W 01-19 07:29 → EH 01-19 07:36
PROVIDERS: ADMIT Family Medicine; ATTEND Family Medicine
DX: K21.9 Gastro-esophageal reflux disease without esophagitis (principal); E78.5 Hyperlipidemia, unspecified; I48.2 Chronic atrial fibrillation; I25.10 Atherosclerotic heart disease of native coronary artery without angina pectoris; I12.9 Hypertensive chronic kidney disease with stage 1 through stage 4 chronic kidney disease, or unspecified chronic kidney disease; E11.22 Type 2 diabetes mellitus with diabetic chronic kidney disease; N18.3 Chronic kidney disease, stage 3 (moderate); R00.1 Bradycardia, unspecified; I65.29 Occlusion and stenosis of unspecified carotid artery; R74.8 Abnormal levels of other serum enzymes; R59.0 Localized enlarged lymph nodes; I44.7 Left bundle-branch block, unspecified; Z79.02 Long term (current) use of antithrombotics/antiplatelets; Z79.82 Long term (current) use of aspirin; Z79.899 Other long term (current) drug therapy; Z95.1 Presence of aortocoronary bypass graft; Z95.5 Presence of coronary angioplasty implant and graft; Z82.49 Family history of ischemic heart disease and other diseases of the circulatory system; Z83.1 Family history of other infectious and parasitic diseases; Z84.89 Family history of other specified conditions
CPT/HCPCS: 93005 ×2; 99285; 36415 ×3; 82553; 82962 ×2; 82550; 83735; 85025; 80048; 80053; 84484 ×2; 80061; 93306; 93017; 71010; 78452; 93010 ×2; G0378 ×2; A9500; A9270 ×20; J2785; J1644 ×2; J0360; J3490 ×3; J0280; Q9969

== ENCOUNTER → 2017-03-27 | Outpatient (CLI) | payer MEDICARE, OTHER ==
--- NOTE | 2017-03-27 14:55 | RADIOLOGY REPORT (SQ) ---
EXAM DESCRIPTION: CT ABD/PELVIS NO ORAL OR IV COMPLETED DATE/TIME: 03/27/2017 2:30 pm REASON FOR STUDY: ABD PAIN (R10.9), ACUTE LOW BACK PAIN (M54.5) R10.9 UNSPECIFIED ABDOMINAL PAIN COMPARISON: None. TECHNIQUE: CT scan of the abdomen and pelvis performed without intravenous or oral contrast. Images reviewed with lung, soft tissue, and bone windows. Reconstructed coronal and sagittal MPR images revi ewed. All images stored on PACS. All CT scanners at this facility use dose modulation, iterative reconstruction, and/or weight based d osing when appropriate to reduce radiation dose to as low as reasonably achievable (ALARA). [facility]: Dose Right [facility]: CareDose [facility]: Dose Right [facility]: Teradose 4D [facility]: coRank RADIATION DOSE: CT Rad equipment meets quality standard of care and radiation dose reduction techniq ues were employed. CTDIvol: 7.5 mGy. DLP: 384 mGy-cm.mGy. LIMITATIONS: Artifact is identified on several of the pelvic images related to a left hip prosthesis . FINDINGS: LOWER CHEST: No significant findings. No nodules or infiltrates. NON-CONTRASTED LIVER, SPLEEN, ADRENALS: Evaluation limited by lack of IV contrast. No identified sign ificant masses. PANCREAS: No masses. No peripancreatic inflammatory changes. GALLBLADDER: Small solitary gallstone is identified. No inflammatory changes to suggest cholecystitis . RIGHT KIDNEY AND URETER: No suspicious masses. Assessment limited by lack of IV contrast. No signif icant calcifications. No hydronephrosis or hydroureter. LEFT KIDNEY AND URETER: No suspicious masses. Assessment limited by lack of IV contrast. No signifi cant calcifications. No hydronephrosis or hydroureter. AORTA AND RETROPERITONEUM: No aneurysm. There is some ectasia of the abdominal aorta with vascular c alcifications. No retroperitoneal masses or adenopathy. BOWEL AND PERITONEAL CAVITY: No obvious masses or inflammatory changes. No free fluid. APPENDIX: Normal. PELVIS, BLADDER, AND ABDOMINAL WALL:No abnormal masses. No free fluid. Bladder normal. Umbilical her ricardo containing fat is identified. There is some laxity in the anterior abdominal musculature in the midline in the upper abdomen with a convex bulge and small associated ventral hernia. BONES: No significant findings. OTHER: A vacuum phenomenon is identified at the level of the L4-L5 disc space consistent with disc de generation IMPRESSION: Small solitary gallstone. Small ventral hernia and umbilical hernia as noted above. Ot her findings as noted above COMMENT: Quality ID # [id number]: Final reports with documentation of one or more dose reduction techniques (e.g., Automated exposure control, adjustment of the mA and/or kV according to patient size, use of iterative reconstruction technique) TECHNICAL DOCUMENTATION: JOB ID: [id number] [employer]- All Rights Reserved
== END ==
LOC: RAD 14:13
PROVIDERS: ATTEND Physician Assistant
DX: M54.5 Low back pain (principal); R10.9 Unspecified abdominal pain
CPT/HCPCS: 74176

== ENCOUNTER 2020-03-18 18:08 | Emergency (ER) | payer MEDICARE, OTHER ==
--- NOTE | 2020-03-18 18:59 | ER Document Report ---
ED General - General Chief Complaint: Shortness Of Breath Stated Complaint: SHORTNESS OF BREATH Time Seen by Provider: 03/18/20 18:59 Primary Care Provider: JEROME EAST MD [Primary Care Provider] - Follow up as needed TRAVEL OUTSIDE OF THE [place] IN LAST 30 DAYS: No - HPI Notes: 89-year-old female presents with acute onset of shortness of breath. Information is primarily obtained from patient's daughter who lives with her. States that around 2 PM patient was complaining of not feeling well, states that she had an upset stomach, but denied abdominal pain. No nausea or vomiting. At 2:30 PM patient had said that her stomach was feeling better and that she just wanted to lay down. At 5 PM patient's daughter thought that she could hear a "wheezing" and patient seemed short of breath, she did not have a fever. At 5:30 PM the shortness of breath increased, daughter could "hear a rattling in her chest" and more wheezing, therefore decision made to come to the emergency department. Patient's daughter states that she was recently seen by cardiology, Dr. Castillo in [place]. States that carvedilol has been recently discontinued due to "systolic issues" and patient has been doubled on amlodipine, told to expect leg swelling. Patient has been having leg swelling for the past few days, alternates between right and left, right is swollen today. Additionally states that patient has a heart monitor, recently there was an episode where her heart had "stopped for 6 seconds", states this is why the carvedilol was discontinued, on recent recheck of the heart monitor was told that her rhythm was "ok". Denies previous history of CHF or COPD. Patient has had quadruple bypass. Compliant with Xarelto. Patient currently denies complaints. There have been no known Covid exposures. - Related Data Allergies/Adverse Reactions: No Known Allergies Allergy (Verified 01/18/17 22:28) Past Medical History - General Information source: Relative Cannot obtain history due to: Dementia - Social History Smoking Status: Unknown if Ever Smoked Family History: Reviewed & Not Pertinent - Past Medical History Cardiac Medical History: Reports: Hx Atrial Fibrillation, Hx Coronary Artery Disease, Hx Hypercholesterolemia, Hx Hypertension, Hx Peripheral Vascular Disease - History of carotid stenting Denies: Hx Congestive Heart Failure, Hx DVT, Hx Pulmonary Embolism Pulmonary Medical History: Denies: Hx Asthma, Hx COPD, Hx Sleep Apnea Neurological Medical History: Denies: Hx Seizures Endocrine Medical History: Reports: Hx Diabetes Mellitus Type 2. Denies: Hx Diabetes Mellitus Type 1, Hx Hyperthyroidism, Hx Hypothyroidism Renal/ Medical History: Denies: Hx Peritoneal Dialysis GI Medical History: Reports: Hx Gastroesophageal Reflux Disease. Denies: Hx Cirrhosis, Hx Hepatitis Musculoskeletal Medical History: Denies Hx Arthritis Psychiatric Medical History: Denies: Hx Depression Infectious Medical History: Denies: Hx Hepatitis Past Surgical History: Reports: Hx Cardiac Surgery - bypass in 1995, Hx Coronary Artery Bypass Graft - Four-vessel bypass, , Hx Orthopedic Surgery - Hip surgery, Other - Partial thyroidectomy for benign disease - Immunizations Hx Diphtheria, Pertussis, Tetanus Vaccination: Yes Hx Pneumococcal Vaccination: 04/28/07 Review of Systems - Review of Systems Notes: Unable to obtain full ROS due to dementia Cardiovascular: denies: Chest pain Respiratory: Short of breath Gastrointestinal: denies: Abdominal pain, Diarrhea, Vomiting Physical Exam - Vital signs Vitals: Pulse Ox 89 L 03/18/20 18:42 - General General appearance: Alert - HEENT Head: Normocephalic, Atraumatic Extraocular movements intact: Yes Pupils: PERRL Neck: Supple - Respiratory Respiratory status: Tachypnea Breath sounds: Rales - Most prominent at right base - Cardiovascular Rhythm: Other - Regularly irregular rhythm, normal rate Normal capillary refill: Yes - Abdominal Distension: No distension Bowel sounds: Normal Tenderness: Nontender - Extremities General lower extremity: Edema - Pitting edema to right leg, trace edema to left leg - Neurological Neuro grossly intact: Yes Notes: Face is symmetric and speech is clear, moves all extremities, sensation grossly intact - Psychological Associated symptoms: Other - Pleasant - Skin Skin Temperature: Warm Course - Re-evaluation Re-evalutation: 89-year-old female with acute onset of shortness of breath today. Has not been recently sick, no known Covid exposures. On exam patient is alert, she is afebrile and was 82% on room air, she is now on 5 L nasal cannula which have improved her saturations to the low 90s. She has some tachypnea and rales most prominent at the right mid to lower mortensen. She does also have pitting edema to her right leg. Her EKG demonstrated depressions in V4 through 5, no STEMI. Given her acute onset of shortness of breath, physical exam and EKG changes, I am concerned for new onset CHF. Question if this is relation to discontinuation of carvedilol. NSTEMI a possibility as well. Daughter reports compliance with Xarelto, therefore less concern for PE at this time. Would not suspect GI related illness. 03/18/20 21:26 No leukocytosis, anemia which appears chronic. Electrolytes within normal limits, creatinine within normal limits. New elevation of BNP 3110, troponin elevated as well likely representing leak however given the depressions will initiate heparin infusion. Updated patient and patient's daughter on plan for admission for new CHF Discussed with the hospitalist team for admission, has requested a CTA chest to evaluate for PE and a repeat troponin 03/18/20 23:55 Troponin has increased 0.165 to 1.160. Re-discussed with hospitalist who would like patient transferred to a tertiary care center, apparently has already discussed with cardiology on-call who recommended the same. 03/18/20 23:59 Called [facility] transfer center, physician to be paged 03/19/20 00:06 CTA chest has resulted, no PE. Read as likely asymmetric edema on the right side, however cannot rule out infection. Given the acute onset less suspicious for infectious etiology and does not have leukocytosis. 03/19/20 00:[address] Erwin at [facility], will accept patient pending COVID, have ordered rapid swab. Additionally able to review recent cardiology clinic notes, apparently the depressions in V4-6 were present on her most recent EKG. Her CABG was done in the 90s. 03/19/20 00:40 Updated patient's daughter on new plan for transfer. She states that she will be coming to the emergency department to drop off a change of clothes. 03/19/20 02:34 Covid negative 03/19/20 02:36 [facility] updated - Vital Signs Vital signs: Temp Pulse Resp BP Pulse Ox 98.2 F 72 20 159/68 H 90 L 03/18/20 18:43 03/18/20 18:43 03/19/20 02:00 03/18/20 23:01 03/19/20 01:07 - Laboratory Result Diagrams: 03/18/20 18:50 03/18/20 18:50 Laboratory results interpreted by me: 03/18/20 03/18/20 03/18/20 18:50 18:50 18:50 RBC 3.25 L Hgb 9.2 L Hct 28.7 L RDW 14.5 H Lymph % (Auto) 9.6 L Absolute Neuts (auto) 8.8 H Seg Neutrophils % 84.3 H PT BUN 26 H Glucose 175 H AST 37 H NT-Pro-B Natriuret Pep 3110 H Urine Blood Ur Leukocyte Esterase 03/18/20 03/18/20 18:50 21:38 RBC Hgb Hct RDW Lymph % (Auto) Absolute Neuts (auto) Seg Neutrophils % PT 17.3 H BUN Glucose AST NT-Pro-B Natriuret Pep Urine Blood MODERATE H Ur Leukocyte Esterase SMALL H - Diagnostic Test Radiology reviewed: Image reviewed, Reports reviewed - EKG Interpretation by Me Additional EKG results interpreted by me: EKG as interpreted by me. Atrial flutter with multiple flutter waves present, ventricular rate 64. Slightly widened QRS, likely IVCD. QTc within normal limits. ST depressions V4, V5, V6. No STEMI. No previous available for comparison. Discharge - Discharge Clinical Impression: CHF (congestive heart failure) Qualifiers: Heart failure type: unspecified Heart failure chronicity: acute Qualified Code(s): I50.9 - Heart failure, unspecified Disposition: [facility] Referrals: JEROME EAST MD [Primary Care Provider] - Follow up as needed
[2020-03-18 19:21] LABS: ABSOLUTE BASOPHILS # (AUTO) 0.1 10^3/uL (0.0-0.2); ABSOLUTE MONOCYTES (AUTO) 0.6 10^3/uL (0.1-1.4); ABSOLUTE NEUT (AUTO) 8.8 10^3/uL (1.7-8.2); BASOPHILS % (AUTO) 0.5 % (0-2); HEMATOCRIT 28.7 % (36.0-47.0); HEMOGLOBIN 9.2 g/dL (12.0-15.5); LYMPHOCYTES % (AUTO) 9.6 % (13-45); MEAN CORPUSCULAR HEMOGLOBIN 28.2 pg (27.0-33.4); MEAN CORPUSCULAR VOLUME 88 fl (80-97); MONOCYTES % (AUTO) 5.6 % (3-13); PLATELET COUNT 210 10^3/uL (150-450); RED BLOOD COUNT 3.25 10^6/uL (3.72-5.28); RED CELL DISTRIBUTION WIDTH 14.5 % (11.5-14.0); SEGMENTED NEUTROPHILS % (AUTO) 84.3 % (42-78); TOTAL CELLS COUNTED % (AUTO) 100 %; WHITE BLOOD COUNT 10.4 10^3/uL (4.0-10.5)
--- NOTE | 2020-03-18 19:34 | RADIOLOGY REPORT (SQ) ---
EXAM DESCRIPTION: CHEST SINGLE VIEW IMAGES COMPLETED DATE/TIME: 03/18/2020 7:16 pm REASON FOR STUDY: shortness of breath COMPARISON: 03/16/2015 TECHNIQUE: Single frontal radiographic view of the chest acquired. NUMBER OF VIEWS: One view. LIMITATIONS: None. FINDINGS: LUNGS AND PLEURA: No pneumothorax. Right basilar patchy airspace opacities and small pleu ral effusion. Similar chronic interstitial markings bilaterally. MEDIASTINUM AND HILAR STRUCTURES: Stable. HEART AND VASCULAR STRUCTURES: Stable. BONES: No acute findings. HARDWARE: CABG. OTHER: No other significant finding. IMPRESSION: Right basilar patchy airspace opacities and small pleural effusion. TECHNICAL DOCUMENTATION: JOB ID: [id number] [id number] 2010 [employer]- All Rights Reserved Reading location - IP/workstation name: [email or web address]
--- NOTE | 2020-03-18 19:41 | EKG REPORT ---
SEVERITY:- ABNORMAL ECG - ATRIAL FLUTTER, A-RATE 217 NONSPECIFIC INTRAVENTRICULAR CONDUCTION DELAY CONSIDER ANTEROSEPTAL INFARCT ST DEPRESSION, CONSIDER ISCHEMIA, LAT LEADS : Confirmed by: Jill Foster MD 18-Mar-2020 19:40:32
[2020-03-18 19:42] LABS: ALBUMIN 4.1 g/dL (3.5-5.0); ALKALINE PHOSPHATASE 86 U/L (38-126); ANION GAP 14 (5-19); ASPARTATE AMINO TRANSFERASE 37 U/L (14-36); BILIRUBIN,DIRECT 0.2 mg/dL (0.0-0.4); BILIRUBIN,TOTAL 0.9 mg/dL (0.2-1.3); BLOOD UREA NITROGEN 26 mg/dL (7-20); CALCIUM 8.7 mg/dL (8.4-10.2); CARBON DIOXIDE 22 mmol/L (22-30); CHLORIDE 105 mmol/L (98-107); GLUCOSE 175 mg/dL (75-110); POTASSIUM 3.7 mmol/L (3.6-5.0)
[2020-03-18 19:54] LABS: TROPONIN I 0.165 ng/mL
[2020-03-18] MEDS ORDERED: FUROSEMIDE INJ/PF 20 MG/2 ML SDV IV ONE (20:15)
[2020-03-18] MEDS ORDERED: HEPARIN SOD (PORCINE) 1,000 UNIT/ML 10 ML VIAL IV ONE (21:15)
[2020-03-18] MEDS ORDERED: HEPARIN SODIUM,PORCINE/D5W 25,000 UNIT/250 ML RTUINJ IV PRN (21:15)
[2020-03-18 21:43] LABS: PROTHROMBIN TIME 17.3 SEC (11.4-15.4)
[2020-03-18 21:44] LABS: PARTIAL THROMBOPLASTIN TIME 30.9 SEC (23.5-35.8)
[2020-03-18 21:54] LABS: APPEARANCE,URINE SLIGHTLY-CLOUDY; BILIRUBIN,URINE NEGATIVE (NEGATIVE); COLOR,URINE YELLOW; GLUCOSE, URINE NEGATIVE (NEGATIVE); KETONES,URINE NEGATIVE (NEGATIVE); LEUKOCYTE ESTERASE,URINE SMALL (NEGATIVE); NITRITE,URINE NEGATIVE (NEGATIVE); PROTEIN,URINE NEGATIVE (NEGATIVE); URINE SPECIFIC GRAVITY 1.011; UROBILINOGEN,URINE NEGATIVE mg/dL (<2.0)
--- NOTE | 2020-03-18 23:56 | RADIOLOGY REPORT (SQ) ---
CT angiogram chest with contrast on 03/18/2020 at 11:10 PM CLINICAL INDICATION: Shortness of breath, hypoxia TECHNIQUE: Multiple axial images are obtained throughout the chest following the administration of IV contrast. Computer generated 3D reconstructions/MIPS were performed. This exam was performed according to our departmental dose-optimization program, which includes automated exposure control, adjustment of the mA and/or kV according to patient size and/or use of iterative reconstruction technique. Total DLP is 476.67 mGy*cm. COMPARISON: CT abdomen and lower chest from 03/27/2017 FINDINGS: There are small right greater than left pleural effusions. There is reflux of contrast into the IVC and hepatic veins indicating elevated right heart pressure. Limited visualized upper abdomen is otherwise unremarkable. Cardiomegaly is noted. The patient is status post median sternotomy and CABG. There are no filling defects within the pulmonary arteries to suggest pulmonary embolus. There is chronic-appearing area of atelectasis and scarring in the left upper lobe with some associated bronchiectasis. There is evidence of calcified granulomatous disease in the chest. There are patchy groundglass and airspace opacities in the right lung. There is also some septal thickening in the right lung. This could all represent asymmetric edema but a component of infection may also be present. There is some right lower lung atelectasis adjacent to the right pleural effusion. The left lung is otherwise clear. No acute bony abnormality is noted. IMPRESSION: 1. Right greater than left pleural effusions. 2. Opacities in the right lung that may all represent asymmetric edema but a component of infection could also be present. Imaging features can be seen with viral pneumonia, though are nonspecific and can occur with a variety of infectious and noninfectious processes. [PneInd] 3. No evidence of pulmonary embolus.
[2020-03-19] MEDS ORDERED: HEPARIN SOD (PORCINE) 1,000 UNIT/ML 10 ML VIAL IV PRN (00:15)
[2020-03-19 03:57] VITALS: BP 145/52
[2020-03-19] MEDS ORDERED: FUROSEMIDE INJ/PF 20 MG/2 ML SDV IV SCH (10:00)
== END 2020-03-19 04:53 | disposition short-term general hospital (02) ==
LOC: ER 18:08
DX: I50.9 Heart failure, unspecified (principal); R06.02 Shortness of breath; E11.9 Type 2 diabetes mellitus without complications; Z20.828 Contact with and (suspected) exposure to other viral communicable diseases; Z79.01 Long term (current) use of anticoagulants; Z95.1 Presence of aortocoronary bypass graft
CPT/HCPCS: 93005; 99285; 96375; 96365; 96366 ×2; 36415; 83735; 85025; 85610; 85730; 0241U ×4; 80053; 81001; 84484; 83880; 71045; 71275; 93010; J1644 ×2; J1940; C9803